=== PATIENT | male | born 1955 | race Caucasian/White ===

== ENCOUNTER → 2021-10-22 11:10 | Outpatient (BNVA) | payer MEDICARE, SELFPAY | PROVIDERS: Family Provider Family Medicine; PCP Family Medicine; Visit Provider Internal Medicine Cardiovascular Disease | DX: I11.0 Hypertensive heart disease with heart failure (principal); I50.33 Acute on chronic diastolic (congestive) heart failure; R06.02 Shortness of breath; I42.8 Other cardiomyopathies; I25.10 Atherosclerotic heart disease of native coronary artery without angina pectoris | CPT/HCPCS: 80048; 83880 ==

== ENCOUNTER → 2021-12-16 12:56 | Outpatient (BNVA) | payer MEDICARE, SELFPAY | PROVIDERS: Family Provider Family Medicine; PCP Family Medicine; Referring Provider Family Medicine; Visit Provider Podiatrist Foot & Ankle Surgery | DX: M19.071 Primary osteoarthritis, right ankle and foot (principal); M79.671 Pain in right foot | CPT/HCPCS: 73630 ==

== ENCOUNTER 2022-01-15 14:47 | Outpatient (CLI) | payer MEDICARE, SELFPAY ==
--- NOTE | 2022-01-15 14:54 | USCV_ITS ---
Braden Johnson Age: 66 Gender: M : 1955 Exam Date: 01/15/2022 14:59 Ordering Phys: Michelle Rees MD ([email or web address]) Technologist: MARTINA Exam Location: [facility] [place] Indication: Dyspnea BP: 138 / 70 HR: 58 Rhythm: Sinus Technical Quality: Adequate MEASUREMENTS (Male / Female) Normal Values 2D ECHO LV Diastolic Diameter PLAX 3.9 cm 4.2 - 5.9 / 3.9 - 5.3 cm LV Systolic Diameter PLAX 2.9 cm IVS Diastolic Thickness 1.4 cm 0.6 - 1.0 / 0.6 - 0.9 cm IVS Systolic Thickness 1.4 cm LVPW Diastolic Thickness 1.6 cm 0.6 - 1.0 / 0.6 - 0.9 cm LVPW Systolic Thickness 1.3 cm RV Chamber Size 3.3 cm LVOT Diameter 2.0 cm LV Ejection Fraction 2D Teich 52.5 % LV Ejection Fraction MOD 2C 43.7 % LV Ejection Fraction 2C AL 44.5 % LA Diameter 3.7 cm LA Width 4.6 cm LA Height 4.8 cm RA Width 3.2 cm RA Height 4.4 cm Aorta at Sinotubular Diameter 2.7 cm M-MODE Aortic Annulus Diameter 3.4 cm LA Ao Ratio MM 1.1 MV E Point Septal Separation 0.3 cm DOPPLER AV Peak Velocity 123.0 cm/s LVOT Peak Velocity 110.0 cm/s AV Area Cont Eq vti 2.8 cm squared AV Area Cont Eq pk 2.8 cm squared MV Area PHT 2.3 cm squared Mitral E to A Ratio 0.7 MV E' Velocity 36.0 cm/s Mitral E to MV E' Ratio 11.4 Mitral E to LV E' Lateral Ratio 9.6 Mitral E to LV E' Septal Ratio 14.4 TR Peak Velocity 275.6 cm/s TR Peak Gradient 30.4 mmHg TR Mean Velocity 219.2 cm/s TR Mean Gradient 21.8 mmHg TR Velocity Time Integral 81.3 cm TV Peak E Velocity 49.0 cm/s PV Peak Velocity 123.0 cm/s RV Acceleration Time 0.1 s RV Ejection Time 0.3 s RV AcT/ET 0.3 FINDINGS Left Ventricle Normal left ventricular size and systolic function, EF 55 %. Mild left ventricular hypertrophy. Grade I/IV diastolic dysfunction (abnormal relaxation filling pattern), normal to mildly elevated filling pressures. Right Ventricle The right ventricle is normal in size and function. Right Atrium The right atrium is normal in size. Left Atrium Mildly increased left atrial size. Mitral Valve Thickened mitral valve. Moderate mitral annular calcification. Aortic Valve Thickened aortic valve. Tricuspid Valve No gross abnormalities noted Pulmonic Valve Pulmonic valve not well visualized. Pericardium No pericardial effusion. Aorta Normal ascending aorta dimension. CONCLUSIONS Normal left ventricular size and systolic function, EF 55 %. Mild left ventricular hypertrophy. Grade I/IV diastolic dysfunction (abnormal relaxation filling pattern), normal to mildly elevated filling pressures. Mildly increased left atrial size. Thickened mitral valve. Moderate mitral annular calcification. Thickened aortic valve. There is no pericardial effusion. There are no intracardiac masses. Technically difficult study because of the poor ultrasonic window. Dr Michelle Rees MD [facility] (Electronically Signed) Final Date: 15 January 2022 17:46 S
== END 2022-01-15 14:48 | disposition home or self-care (01) ==
PROVIDERS: PCP Family Medicine; Visit Provider Internal Medicine Cardiovascular Disease
DX: R06.00 Dyspnea, unspecified (principal); I08.0 Rheumatic disorders of both mitral and aortic valves
CPT/HCPCS: 93306

== ENCOUNTER → 2022-03-16 14:29 | Outpatient (BNVA) | payer MEDICARE, SELFPAY | PROVIDERS: PCP Family Medicine; Visit Provider Internal Medicine Cardiovascular Disease | DX: I25.10 Atherosclerotic heart disease of native coronary artery without angina pectoris (principal); R06.02 Shortness of breath; I12.9 Hypertensive chronic kidney disease with stage 1 through stage 4 chronic kidney disease, or unspecified chronic kidney disease; E11.22 Type 2 diabetes mellitus with diabetic chronic kidney disease; N18.2 Chronic kidney disease, stage 2 (mild); Z87.891 Personal history of nicotine dependence; Z79.84 Long term (current) use of oral hypoglycemic drugs; E11.42 Type 2 diabetes mellitus with diabetic polyneuropathy; I42.8 Other cardiomyopathies | CPT/HCPCS: 99214 ==

== ENCOUNTER 2022-06-09 07:27 | Outpatient (CLI) | payer MEDICARE, SELFPAY ==
[2022-06-09 07:30] VITALS: BMI 33.6
--- NOTE | 2022-06-09 07:42 | ECG_ITS ---
[facility] Test Date: 2022-06-09 Pat Name: Braden Johnson Department: Room: Gender: Male Design Eng: : 1955 Requested By: Michelle Rees Order Number: [id number] Wolf MD: Michelle Rees M.D. Interpretive Statements NAME OF STUDY: EXERCISE SESTAMIBI STRESS TEST INDICATION: Shortness of Breath RESULTS TO SUZI ADLER MD PROCEDURE: The baseline electrocardiogram showed normal sinus rhythm with normal ST-Ts left bundle branch block pattern. At the baseline, the patient's blood pressure was 141/109 mm Hg with a heart rate of 73. The patient exercised for 2 minutes and 50 seconds on a standard [place] protocol. Patient attained a maximum heart rate of 133 beats per minute(87% of the maximum predicted heart rate) with a blood pressure at the peak exercise of 161/109 mm Hg. The EKG at the peak exercise revealed ST changes in the inferolateral leads suggesting inferolateral ischemia.. Patient was complaining of some chest pressure with exercise. No significant arrhythmis with the exercise] Sestamibi was injected 1 minute prior to the peak exercise During the recovery phase, there were no new changes. Blood pressure at the end of the recovery phase was 200/100 mm Hg with a heart rate of 123 per minute. CONCLUSION: 1. The EKG response to exercise is uninterpretable due to the baseline changes. The changes may suggest inferolateral wall ischemia. 2. Exercise-induced chest pressure 3. Impaired exercise tolerance, attained a maximum of 4.6 METs 4. Sestamibi/Sestamibi perfusion results pending; see separate report. Electronically Signed On 06-13-2022 19:53:53 CDT by Michelle Rees M.D. [email or web address]
--- NOTE | 2022-06-09 07:43 | NMCV_ITS ---
NM mindi perf SPECT r/s* [id number] Braden Johnson Age: 66 Gender: M : 1955 Exam Date: 06/09/2022 08:44 Ordering Phys: Michelle Rees MD ([email or web address]) Technologist: CHACHA Preciado Exam Location: [facility] Indications: SHORTNESS OF BREATH STRESS TEST Please see separate stress test report in [facility] for full findings IMAGE PROTOCOL Rest/Stress 1 Exercise Day Radiopharmaceutical Dose (mCi) Administration Site Administered by Rest: Tc-99m 10.9 IV CHACHA Deluca Sestamibi Stress:Tc-99m 33.0 IV CHACHA Deluca Sestamibi Rest: 09-Jun-2022 60 Discovery 630 Stress: 09-Jun-2022 15 Discovery 630 Radiopharmaceutical was injected at 86 % maximum heart rate. Images obtained in supine and prone position. SPECT RESULTS Technical Quality: Excellent Raw Data Analysis: Normal Image Corrections: No attenuation or motion correction applied Summed Stress Score: 10 Summed Rest Score: 9 Summed Difference Score: 1 PERFUSION FINDINGS Moderate area of minimal to moderately decreased tracer uptake in the mid anteroseptal, mid inferoseptal and over the apical segments including the LV apex. A small area of reversibility was noted in the apical lateral region. FUNCTIONAL RESULTS (calculated via Gated SPECT) Stress Image LV EF (%): 45 Stress EDV (mL):153 TID: 0.9 Stress ESV (mL):84 FUNCTIONAL FINDINGS: Segmental wall motion analysis revealed diffuse hypokinesia of the septum and the LV apex IMPRESSIONS 1. 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 2. Diminished LV ejection fraction of 45%. 3. LV wall motion analysis revealing diffuse hypokinesia of the septum and LV apex. 4. Mildly dilated LV cavity with an end-systolic volume of 84 mL. No similar previous studies are available for comparison Dr Michelle Rees MD [facility] (Electronically Signed) Final Date: 10 June 2022 07:00 S
[2022-06-09 09:52] VITALS: BP 143/81; PULSE 83
== END 2022-06-09 07:28 | disposition home or self-care (01) ==
LOC: CDL 07:29
PROVIDERS: PCP Family Medicine; Visit Provider Internal Medicine Cardiovascular Disease
DX: R06.02 Shortness of breath (principal)
CPT/HCPCS: 78452; 93017; A9500

== ENCOUNTER → 2023-10-26 14:06 | Outpatient (BNVA) | payer MEDICARE, SELFPAY | PROVIDERS: PCP Family Medicine; Visit Provider Internal Medicine Cardiovascular Disease | DX: I25.10 Atherosclerotic heart disease of native coronary artery without angina pectoris (principal); I44.7 Left bundle-branch block, unspecified; I12.9 Hypertensive chronic kidney disease with stage 1 through stage 4 chronic kidney disease, or unspecified chronic kidney disease; E11.22 Type 2 diabetes mellitus with diabetic chronic kidney disease; N18.2 Chronic kidney disease, stage 2 (mild); Z87.891 Personal history of nicotine dependence; Z79.84 Long term (current) use of oral hypoglycemic drugs | CPT/HCPCS: 99213 ==